=== PATIENT | female | born 2000 | race American Indian/Alaskan Native ===

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

== ENCOUNTER 2021-11-12 18:55 | Emergency (ER) | payer MEDICAID ==
[2021-11-12 19:25] VITALS: BP 113/78
== END 2021-11-12 23:00 | disposition left against medical advice (07) ==
LOC: ED 18:55
DX: R51.9 Headache, unspecified (principal); Z53.21 Procedure and treatment not carried out due to patient leaving prior to being seen by health care provider

== ENCOUNTER 2021-11-13 09:13 | Emergency (ER) | payer MEDICAID ==
[2021-11-13 09:59] VITALS: BP 97/50
--- NOTE | 2021-11-13 12:36 | Electrocardiograph Report ---
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
--- NOTE | 2021-11-13 13:24 | Emergency Department Report ---
ED Female HPI - General Chief complaint: Chest Pain Stated complaint: CHEST PAIN NEAR BREAST Time Seen by Provider: 11/13/21 13:16 Source: patient Mode of arrival: Ambulatory Limitations: No Limitations - History of Present Illness Initial comments: Patient is a 21-year-old female that comes to the emergency room with breast pain. She states that she is . This is her second . She states that she did not have breast pain with her first so this alarmed her. On my exam she denied any vaginal bleeding, vaginal discharge, dysuria, fever, chills. 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 Severity: mild Consistency: constant Are you Now?: Yes Associated Symptoms: denies other symptoms. denies: vaginal discharge, vaginal bleeding, abdominal pain, nausea/vomiting, fever/chills, headaches, loss of appetite, dysuria, hematuria, rash, seizure, shortness of breath, syncope, weakness - Related Data Sexually active: Yes : 2 Para: 1 Home Medications Medication Instructions Recorded Confirmed Last Taken [place] Tablet 1 tab PO DAILY MDD 1 01/16/19 01/16/19 3 Days Ago ~01/13/19 1 Previous Rx's Medication Instructions Recorded Last Taken Type HYDROcodone/APAP 5-325 [[place] 1 each PO Q6HR PRN #20 tablet 01/16/19 Unknown Rx 5/325] Ibuprofen [Motrin] 800 mg PO Q8HR PRN #60 tablet 01/16/19 Unknown Rx Allergies Allergy/AdvReac Type Severity Reaction Status Date / Time No Known Allergies Allergy Unverified 01/14/19 19:24 ED Review of Systems ROS: Stated complaint: CHEST PAIN NEAR BREAST Other details as noted in HPI Comment: All other systems reviewed and negative ED Past Medical Hx - Past Medical History Previous Medical History?: Yes Hx Hypertension: Yes Hx Congestive Heart Failure: No Hx Diabetes: No Hx Deep Vein Thrombosis: No Hx Renal Disease: No Hx Sickle Cell Disease: No Hx Seizures: No Hx Asthma: No Hx COPD: No Hx HIV: No - Surgical History Past Surgical History?: No - Family History Family history: no significant - Social History Smoking Status: Never Smoker Substance Use Type: None - Medications Home Medications: Home Medications Medication Instructions Recorded Confirmed Last Taken Type HYDROcodone/APAP 5-325 [[place] 1 each PO Q6HR PRN #20 tablet 01/16/19 Unknown Rx 5/325] Ibuprofen [Motrin] 800 mg PO Q8HR PRN #60 tablet 01/16/19 Unknown Rx [place] Tablet 1 tab PO DAILY MDD 1 01/16/19 01/16/19 3 Days Ago History ~01/13/19 1 ED Physical Exam - General Limitations: No Limitations General appearance: alert, in no apparent distress - Head Head exam: Present: atraumatic, normocephalic - Eye Eye exam: Present: normal appearance - ENT ENT exam: Present: mucous membranes moist - Neck Neck exam: Present: normal inspection - Respiratory Respiratory exam: Present: normal lung sounds bilaterally. Absent: respiratory distress - Cardiovascular Cardiovascular Exam: Present: regular rate, normal rhythm. Absent: systolic murmur, diastolic murmur, rubs, gallop - GI/Abdominal GI/Abdominal exam: Present: soft, normal bowel sounds - Extremities Exam Extremities exam: Present: normal inspection - Back Exam Back exam: Present: normal inspection - Neurological Exam Neurological exam: Present: alert, oriented X3 - Psychiatric Psychiatric exam: Present: normal affect, normal mood - Skin Skin exam: Present: warm, dry, intact, normal color. Absent: rash ED Course Vital Signs 11/13/21 11/13/21 09:57 09:58 Temperature 97.9 F 97.9 F Pulse Rate 63 Respiratory 18 Rate Blood Pressure 97/50 O2 Sat by Pulse 97 Oximetry ED Medical Decision Making - Medical Decision Making Vital Signs 11/13/21 11/13/21 09:57 09:58 Temperature 97.9 F 97.9 F Pulse Rate 63 Respiratory 18 Rate Blood Pressure 97/50 O2 Sat by Pulse 97 Oximetry Vital signs are normal. Patient has no fever or chills. Breast examination reveals no abscess. She has bilateral tenderness. Nipples appear normal. There is no discharge. No dimpling. No masses. Patient reassured that breast tenderness is part of . Patient is ambulatory, not ill nontoxic with normal vital signs. Taking p.o. Patient being discharged home with discharge plan of care including diet, activity, medications and follow-up. - Differential Diagnosis Abscess versus breast tenderness associated with Critical care attestation.: If time is entered above; I have spent that time in minutes in the direct care of this critically ill patient, excluding procedure time. ED Disposition Clinical Impression: Breast pain during Disposition: HOME / SELF CARE / HOMELESS Is pt being admited?: No Does the pt Need Aspirin: No Condition: Stable Additional Instructions: warm compresses to breast tylenol for pain follow up with obgyn cindy referral below Referrals: RONY BECKER MD [Staff Physician] - 3-5 Days Time of Disposition: 13:23
== END 2021-11-13 13:30 | disposition home or self-care (01) ==
LOC: ED 09:13
DX: O92.29 Other disorders of breast associated with pregnancy and the puerperium (principal); I10 Essential (primary) hypertension; Z3A.00 Weeks of gestation of pregnancy not specified
CPT/HCPCS: 93005; 99282